=== PATIENT | female | born 1970 | race Asian ===

== ENCOUNTER 2022-05-04 22:55 | Emergency (ER) | payer OTHER, SELFPAY ==
[2022-05-04 23:02] VITALS: BP 185/82; PULSE 82; RESP 18; TEMP 36.4; O2SAT 97; BMI 21.9
[2022-05-05 01:43] LABS: MANUAL DIFF FLAG NO
[2022-05-05 01:44] LABS: Basophils Absolute Auto 0.1 X10*3/uL (0.0-0.2); Eosinophils Absolute Auto 0.6 X10*3/uL (0.0-0.4); Hemoglobin 13.3 g/dl (12.0-16.0); Imm Gran Abs Auto 0.01 X10*3/uL (0.00-0.03); Imm Gran Pct Auto 0.2 % (0.0-0.4); Lymphocytes Percent Auto 47.3 % (20-40); Mean Corpuscular HGB Conc 33.3 g/dl (31.0-35.0); Mean Corpuscular Hemoglobin 30.6 pg (27.0-33.0); Mean Platelet Volume 8.7 fL (9.4-12.3); Monocytes Absolute Auto 0.4 X10*3/uL (0.1-1.2); Monocytes Percent Auto 6.9 % (2-11); Neutrophils Absolute Auto 2.2 x10*3/uL (2.0-8.3); Neutrophils Percent Auto 34.6 % (45-73); Platelet Count 273 X10*3/uL (160-400); Red Blood Count 4.35 X10*6/uL (4.20-5.50); Red Cell Distribution Width 12.5 % (11.0-16.0); White Blood Count 6.4 X10*3/uL (4.8-10.8)
[2022-05-05 02:10] LABS: Alanine Aminotransferase 21 U/L (0-31); Albumin Level 4.2 g/dL (3.5-5.0); Alkaline Phosphatase 65 U/L (39-117); Anion Gap 14 (12-20); Aspartate Amino Transferase 16 U/L (5-31); Bilirubin Total 0.3 mg/dL (0.0-1.0); Blood Urea Nitrogen 14 mg/dL (9-16); Calcium 9.5 mg/dL (8.4-10.2); Carbon Dioxide 25 mmol/L (22-29); Chloride 107 mmol/L (96-108); Creatinine Clr Calc Pharmacy 86.3; Estimated Glomerular Filt Rate > 60; Glucose Random 114 mg/dL (60-115); Potassium 4.2 mmol/L (3.3-5.1); Sodium 142 mmol/L (135-145); Total Protein 6.8 g/dL (6.5-8.0)
--- NOTE | 2022-05-05 03:11 | ED.ANIMALBIT ---
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 Patient states that a cat bit her 2 weeks prior. She states that the wound is now become red, painful and larger than it was after the initial injury. She denied fever, chills, fatigue. She was concerned that the wound was infected so she came to the emergency department for evaluation. Related Data Previous Rx's Medication Instructions Recorded amoxicillin 875 mg-potassium 1 tab PO Q12H 5 days #10 tabs 05/05/22 clavulanate 125 mg tablet ibuprofen 400 mg tablet 400 mg PO TID PRN fever or pain 05/05/22 #30 tabs Allergies Allergy/AdvReac Type Severity Reaction Status Date / Time callaway Allergy Severe SWELLING Verified 05/04/22 23:07 FRUIT Allergy Severe SWELLING Uncoded 11/01/19 16:58 Review of Systems Review of Systems: Yes all other systems are reviewed and are negative [facility] Past Medical History [facility] Narrative: Past medical history: Diabetes mellitus. Social history: She denies tobacco, alcohol and drug use. Social History Social History Advance Directives: No Advance Directives Information Provided: Yes Physical Exam ED Vital Signs: Vital Signs - 24 hr 05/04/22 23:02 Temperature 97.6 F Pulse Rate 82 Respiratory Rate 18 Blood Pressure 185/82 H Pulse Oximetry 97 Oxygen Delivery Method Room Air BMI result Body Mass Index 21.9 General: Awake alert, female patient, pleasant, cooperative in no distress Extremity exam: The patient has a circular area of erythema to the distal aspect of the posterior thigh, the area is warm to the touch, it is indurated but not flocculent. Medical Decision Making Medical Decision Making MDM Narrative: 51-year-old female who presents emergency department for evaluation of an infected cat bite to her right posterior thigh, the initial cap by happened 2 weeks prior but the erythema has gotten worse and she is having increased pain. Patient's findings are consistent with cellulitis. Patient was started on Augmentin 875/1251 pill every 12 hours for 5 days and ibuprofen 400 mg every 6 hours as needed for pain. She was given printed and verbal instructions and discharged home. She was advised to use heat to keep the wound elevated to help improve the healing process. Differential Diagnosis Differential diagnosis includes but is not limited to cellulitis, contusion, Lab Data MDM Lab Attestation statement: I reviewed the patient's lab results. My independent interpretation of the patient's laboratory evaluation is as follows: CBC and CMP are normal. 05/05/22 01:39 05/05/22 01:39 Labs: Lab Results 05/05/22 05/05/22 Range/Units 01:39 01:39 WBC 6.4 (4.8-10.8) X10*3/uL RBC 4.35 (4.20-5.50) X10*6/uL Hgb 13.3 (12.0-16.0) g/dl Hct 40.0 (37.0-47.0) % MCV 92.0 (80.0-98.0) fL MCH 30.6 (27.0-33.0) pg MCHC 33.3 (31.0-35.0) g/dl RDW 12.5 (11.0-16.0) % Plt Count 273 (160-400) X10*3/uL MPV 8.7 L (9.4-12.3) fL Immature Gran % (Auto) 0.2 (0.0-0.4) % Neut % (Auto) 34.6 L (45-73) % Lymph % (Auto) 47.3 H (20-40) % [place] % (Auto) 6.9 (2-11) % Eos % (Auto) 9.0 H (0-4) % Baso % (Auto) 2.0 (0-2) % Lymph # (Auto) 3.0 (1.2-4.9) X10*3/uL [place] # (Auto) 0.4 (0.1-1.2) X10*3/uL Eos # (Auto) 0.6 H (0.0-0.4) X10*3/uL Baso # (Auto) 0.1 (0.0-0.2) X10*3/uL Abs Immat Gran (auto) 0.01 (0.00-0.03) X10*3/uL Absolute Neuts (auto) 2.2 (2.0-8.3) x10*3/uL Absolute Nucleated RBC 0.000 (0.0-0.012) X10*3/uL Nucleated RBC % (auto) 0.0 (0.0-0.2) /100WBC Sodium 142 (135-145) mmol/L Potassium 4.2 (3.3-5.1) mmol/L Chloride 107 (96-108) mmol/L Carbon Dioxide 25 (22-29) mmol/L Anion Gap 14 (12-20) BUN 14 (9-16) mg/dL Creatinine 0.61 (0.5-1.4) mg/dL Estim Creat Clear Calc 86.3 Estimated GFR > 60 Random Glucose 114 (60-115) mg/dL Calcium 9.5 (8.4-10.2) mg/dL Total Bilirubin 0.3 (0.0-1.0) mg/dL AST 16 (5-31) U/L ALT 21 (0-31) U/L Alkaline Phosphatase 65 (39-117) U/L Total Protein 6.8 (6.5-8.0) g/dL Albumin 4.2 (3.5-5.0) g/dL Discharge Plan Discharge Clinical Impression: Cellulitis of right leg Cat bite Qualifiers: Encounter type: initial encounter Qualified Code(s): W55.01XA - Bitten by cat, initial encounter Patient Disposition: Home, Self-Care Instructions: Cellulitis (ED) Additional Instructions: Cellulitis Discharge Instructions You have an infection of your skin. This is called cellulitis. This is usually caused by bacteria on your skin that gets under your skin and then causes the infection Take Augmentin 875, 1 pill every 12 hours for 5 days This is an antibiotic that should help your body fight off the infection. Keep the area of cellulitis elevated to help reduce swelling in the infected area and this helps with the healing process Also apply a heating pad on low or a warm compress for 15 minutes, 4-6 times a day. This will increase the blood flow to the area and will bring white blood cells to the area which will help your body fight off the infection. Take Motrin(ibuprofen) 400 mg pills, 3 pills every 1 hours as needed for pain. Sign of worsening infection include fever, chills, weakness, increased pain, increased redness, increased swelling or red streaks going away from the area of infection. If you develop any of these symptoms or any other symptoms that are concerning to you, see your doctor immediately or return to the Emergency Department. Follow up with your doctor in 3 days for a recheck Please read the other printed instructions that we printed for you. Prescriptions: New ibuprofen 400 mg tablet 400 mg PO TID PRN (Reason: fever or pain) Qty: 30 0RF amoxicillin-pot clavulanate 875-125 mg tablet 1 tab PO Q12H 5 Days Qty: 10 0RF
[2022-05-05] MEDS: Ibuprofen 400 MG TABLET PO (03:29)
[2022-05-05] MEDS: Amoxicillin/Potassium Clav 875 MG TABLET PO (03:29)
--- NOTE | 2022-05-05 03:32 | PC.NURSE ---
Pt. sitting in room with son at bedside, no distress noted. Pt. medicated per MAR and d/c'd to home.
== END 2022-05-05 03:33 | disposition home or self-care (01) ==
PROVIDERS: Emergency Provider Emergency Medicine Emergency Medical Services
DX: L03.115 Cellulitis of right lower limb (principal); S81.851A Open bite, right lower leg, initial encounter; W55.01XA Bitten by cat, initial encounter; Y93.9 Activity, unspecified; Y92.9 Unspecified place or not applicable; Y99.9 Unspecified external cause status
CPT/HCPCS: 36415; 80053; 85025; 99283